=== PATIENT | male | born 1945 | race Caucasian/White ===

== ENCOUNTER 2017-05-23 14:48 | Outpatient (CLI) | payer MEDICARE, OTHER ==
[~2017-05-23 14:48] MED LIST: Iopamidol 370 76% 100 ML VIAL ONE; Iopamidol 370 76% 50 ML VIAL FS ONE
--- NOTE | 2017-05-23 23:12 | CT ---
CT ABDOMEN AND PELVIS WITH CONTRAST: Date: 05-23-[address] of the abdomen and pelvis was performed for evaluation of abdominal pain. Axial slices wer e acquired and then coronal and sagittal reconstructions were done. The exam was done after administ ration of both oral and IV contrast. 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 FINDINGS: The lung bases are clear. There is a little pleural thickening in each posterior hemithorax. No worr isome pulmonary nodules were seen in the areas scanned. The liver, spleen, pancreas, adrenal glands, gallbladder and abdominal aorta showed no acute finding s. Arterial sclerotic changes is seen in the aorta. A few small cysts, one 1 cm or less, were seen i n each kidney. No solid mass or hydronephrosis was indicated in either. There is quite a large amount of fecal material in the colon. Diverticulosis is present to a relativ e mild degree. The only area where there was some questionable pericolonic streaking was near the lo wer descending colon/sigmoid junction, but it was insufficient to made a confident diagnosis of dive rticulitis. No free air or free fluid was seen. The small bowel was unremarkable in appearance. A sm all hiatal hernia was noted. CT PELVIS: Distended urinary bladder. There is a large amount of fecal material in the sigmoid colon. No free f luid or inflammatory changes were seen within the pelvis. Degenerative changes are present throughout the spine. Concentrically bulging disc at L4-5 was noted . IMPRESSION: 1. Constipation. 2. Diverticulosis. 3. Other findings as listed above. POS: HOME
== END 2017-05-23 14:49 | disposition home or self-care (01) ==
LOC: BURCT 14:48
PROVIDERS: ATTEND Family Medicine
DX: Z01.812 Encounter for preprocedural laboratory examination (principal); R10.30 Lower abdominal pain, unspecified; K59.00 Constipation, unspecified; K57.90 Diverticulosis of intestine, part unspecified, without perforation or abscess without bleeding; N28.1 Cyst of kidney, acquired; K44.9 Diaphragmatic hernia without obstruction or gangrene; N32.89 Other specified disorders of bladder; M47.896 Other spondylosis, lumbar region; M51.86 Other intervertebral disc disorders, lumbar region
CPT/HCPCS: 36415; 74177; 82565; A4216

== ENCOUNTER 2017-06-01 09:27 | Outpatient (CLI) | payer MEDICARE, OTHER ==
--- NOTE | 2017-06-01 13:34 | ULT ---
ABDOMINAL ULTRASOUND: Date: 06/01/17 HISTORY: Right upper quadrant abdominal pain and constipation. FINDINGS: There is shadowing from the ribs, which limits evaluation of portions of the hepatic parenchyma, but the liver is grossly normal in appearance. Limited visualized portions of the pancreas, visualized portions of the spleen, visualized portions of the IVC, and bilateral kidneys demonstrate a normal sonographic appearance. The right kidney anuja ures 10.9 cm in length and the left kidney measures 11.2 cm in length. There is a small amount of echogenic material seen within the gallbladder lumen suggesting gallbladd er sludge. No gallbladder calculus is seen. There is no gallbladder wall thickening or pericholecyst ic fluid. The common duct measures 0.48 cm in diameter, which is within normal limits. The abdominal aorta is mostly obscured and not well visualized. IMPRESSION: Small amount of sludge in the gallbladder lumen without evidence of a gallbladder calculus. Common d uct is normal in caliber. POS: [facility]
== END 2017-06-01 09:28 | disposition home or self-care (01) ==
LOC: BURULT 09:27
PROVIDERS: ATTEND Internal Medicine
DX: K59.00 Constipation, unspecified (principal); R10.11 Right upper quadrant pain; K82.8 Other specified diseases of gallbladder
CPT/HCPCS: 76700